=== PATIENT | male | born 1975 | race Caucasian/White ===

== ENCOUNTER 2024-12-26 14:51 | Inpatient (IN) | payer OTHER, SELFPAY ==
[2024-12-26 15:16] VITALS: BMI 30.7
[2024-12-26 15:17] VITALS: BP 169/84; PULSE 84; RESP 14; TEMP 36.8; O2SAT 97
--- NOTE | 2024-12-26 17:22 | PC.ADMIT ---
Marshall was admitted to on 12/26/24 at 15:00 from [facility] for the treatment of bipolar depression. He signed a CV upon arrival. Marshall reports that he was seen by his outpatient provider, who had done several medication adjustments recently, and that she recommended an inpatient admission for medication adjustment. He states that he worked in the [place] at [employer] for over 20 years, but had to stop working about a year ago after a work-related injury. He states that prior to going to the ED, he had been laying in bed for 3 days and was not caring for himself. He reports poor sleep and appetite. He is alert and oriented x4. He reports his mood is depressed and anxious. He denies suicidal and homicidal thoughts and intent. He denies auditory and visual hallucinations. His thought process appears linear. He reports a recent weight gain of about 10 lbs, but states his weight fluctuates a lot. He reports a hx of ETOH abuse, but reports being sober for over 10 years. He states occasional use of cannabis to help with sleep. Utox positive for THC, BAL negative. Marshall stated he has been seeing a neurologist for neuropathy, but was recently referred out to a higher level of care to rule out possible MS diagnosis. He also reports a history of abdominal pain, asthma, chronic low back pain, GERD, hiatal hernia, liver hemangioma, and lumbar radiculopathy. He was placed on 15 minute checks for safety.
[2024-12-26] MEDS: Flu Vacc TS2025-26(6mo up)/PF 0.5 ML SYRINGE IM (18:45)
[2024-12-26 20:00] VITALS: BP 165/87; PULSE 80; RESP 18; TEMP 36.6; O2SAT 98
[2024-12-26 21:57] VITALS: BP 160/82; PULSE 85; RESP 18
[2024-12-27 07:42] VITALS: BP 107/68; PULSE 58; RESP 16; TEMP 37; O2SAT 96
--- NOTE | 2024-12-27 08:15 | HO.PM.IMCN ---
History of Present Illness Data of Consult Service Date: 12/27/24 Primary Care Provider: DANAY Taylor HPI Reason for consult: Medical consult 49-year-old male with a past medical history of asthma, bipolar disorder, alcohol use disorder in sustained remission, generalized anxiety disorder, and major depressive disorder, chronic lower back pain, factor 5 Leiden, GERD, hiatal hernia, liver hemangioma, lumbar radiculopathy, neuropathy and shortness of breath presented to the ED after being referred by his psychiatrist due to increased anxiety and depression. He is possibly being worked up for MS. Toxicology screen was negative, no alcohol. CMP without evidence of renal or liver dysfunction, no electrolyte imbalances. CBC without leukocytosis or anemia. On exam his most persistent problem is his chronic lower back pain. Patient reports she is being followed by [facility] and sees them for several years. He denies any medical concerns. Reports he has a history of elevated blood pressures but that has been stable. Review of Systems Review of Systems: Denies any shortness of breath, chest pain, dysuria, abdominal pain or discomfort, nausea, vomiting or diarrhea. Positive chronic lower back pain PMFSH Social History Household Members: Spouse, Family and Children Household Members Other:: 22 y.o. nonverbal step-son Housing: House Do you presently have visiting nurse or other home services: No Patient Tobacco Use Status: Current everyday Tobacco user Tobacco use type: Smokeless Tobacco Smoked in Last 30 Days: No e-Cigarette/Vaping Use: Never Used Patient Interested in Nicotine Replacement: Yes Patient Given Instructions on How to Stop Smoking: Yes Date Education Initiated: 12/26/24 Second Hand Smoke Exposure: No Currently Displaying Signs/Symptoms of Drug Intoxication Withdrawal: No Have you been hit, kicked, punched, or otherwise hurt by someone within the past year? If so, by whom?: No Do you feel safe in your current relationship?: Yes Is there a partner from a previous relationship who is making you feel unsafe now?: No Are you made to feel afraid or neglected: No Advance Directives: No Advance Directives Information Provided: Yes Do you have thoughts of harming others: None Do you have a plan to hurt others: No Plan Recently lost weight without trying: No How much weight loss: Not applicable Eating poorly because of decreased appetite: Yes Nutrition screen score: 1 Nutrition Risks: No Nutritional Risk Poor oral hygiene: No service: No Sexual orientation: Straight/Heterosexual Meds Allergies Allergy/AdvReac Type Severity Reaction Status Date / Time No Known Allergies Allergy Verified 12/26/24 14:56 Active Medications: Current Medications Acetaminophen (Acetaminophen 325 Mg Tablet) 650 mg PO Q6H PRN PRN Reason: Headache/Pain, Scale 1-10 Al Hydroxide/Mg Hydroxide (Magnesium Hydrox/Alum Hydrox 30 Ml Oral.Susp) 30 ml PO Q6H PRN PRN Reason: Heartburn/Nausea Buspirone HCl (Buspirone Hcl 5 Mg Tablet) 15 mg PO BID [facility] Last Admin: 12/26/24 21:18 Dose: 15 mg Clonazepam (Clonazepam 0.5 Mg Tablet) 0.25 mg PO DAILY PRN PRN Reason: Anxiety Ergocalciferol (Ergocalciferol (Vitamin D2) 1,250 Mcg Capsule) 1,250 mcg PO Q28D [facility] Famotidine (Famotidine 20 Mg Tablet) 40 mg PO BEDTIME [facility] Last Admin: 12/26/24 21:18 Dose: 40 mg Hydroxyzine HCl (Hydroxyzine Hcl 25 Mg Tablet) 25 mg PO Q6H PRN PRN Reason: mild anxiety Lamotrigine (Lamotrigine 25 Mg Tablet) 50 mg PO DAILY [facility] Lamotrigine (Lamotrigine 100 Mg Tablet) 200 mg PO DAILY [facility] [place] Carbonate ([place] Carbonate 300 Mg Capsule) 600 mg PO BID [facility] Last Admin: 12/26/24 21:18 Dose: 600 mg Magnesium Hydroxide (Milk Of Magnesia 30 Ml Oral.Susp) 30 ml PO DAILY PRN PRN Reason: Constipation Nicotine Polacrilex (Nicotine Polacrilex 2 Mg Gum) 4 mg BUCCAL Q2H PRN PRN Reason: Nicotine Cravings Olanzapine (Olanzapine 5 Mg Tablet) 5 mg PO Q4H PRN PRN Reason: agitation Quetiapine Fumarate (Quetiapine Fumarate 50 Mg Tablet) 50 mg PO BEDTIME PRN PRN Reason: Insomnia Quetiapine Fumarate (Quetiapine Fumarate 50 Mg Tablet) 50 mg PO BEDTIME [facility] Last Admin: 12/26/24 21:18 Dose: 50 mg Trazodone HCl (Trazodone Hcl 50 Mg Tablet) 50 mg PO BEDTIME MRX1 PRN PRN Reason: Insomnia Home Medications ?Medication ?Instructions ?Recorded ?Confirmed ?Last Taken ?Type Vitamin D3 50,000 units PO Q4W 12/26/24 12/26/24 Unknown History buspirone 15 mg tablet 15 mg PO BID 12/26/24 12/26/24 Unknown History clonazepam 0.5 mg tablet (Klonopin) 0.25 mg PO DAILY PRN Anxiety 12/26/24 12/26/24 Unknown History famotidine 40 mg tablet 40 mg PO BEDTIME 12/26/24 12/26/24 Unknown History lamotrigine 200 mg tablet 200 mg PO DAILY 12/26/24 12/26/24 Unknown History (Lamictal) lamotrigine 25 mg tablet (Lamictal) 50 mg PO DAILY 12/26/24 12/26/24 Unknown History lithium carbonate 600 mg capsule 600 mg PO BID 12/26/24 12/26/24 Unknown History quetiapine 50 mg tablet (Seroquel) 50 mg PO BEDTIME 12/26/24 12/26/24 Unknown History quetiapine 50 mg tablet (Seroquel) 50 mg PO BEDTIME PRN Insomnia 12/26/24 12/26/24 Unknown History Physical Exam Vital Signs and Narrative: Vital Signs: Last Vital Signs Temp 98.6 F 12/27/24 07:42 Pulse 58 12/27/24 07:42 Resp 16 12/27/24 07:42 BP 107/68 12/27/24 07:42 Pulse Ox 96 12/27/24 07:42 O2 Del Method Room Air 12/27/24 07:42 BMI result Body Mass Index 30.7 CONST: Alert and oriented, in NAD. Well nourished HEENT: Normocephalic, atraumatic, MMM, Eyes clear, Neck supple RESP: Lungs clear, RRR even and regular HEART:,RRR, S1, S2. No edema GI:Abdomen Soft NT, ND. + BS times four :Deferred SKIN: Warm dry and intact, no visible lesions or rashes NEURO:CN II-XII Intact bilaterally, Sensation intact. Speech clear PSYCH: Normal affect Results Labs 12/27/24 07:53 Assessment and Plan (1) Chronic low back pain: Status: Acute Plan 49-year-old male with a past medical history as listed below, admitted to inpatient psych for treatment of increased anxiety and depression. Bipolar disorder/ETOH use in remission/RAMOS/MDD Treatment per psychiatric team Chronic lower back pain/lumbar radiculopathy/neuropathy Follow up by [facility] has received several injections and interventions for his chronic back pain GERD/hiatal hernia/liver hemangioma, Followed by GI outpatient Chronic shortness of breath related to long COVID Patient has had several workups, followed by Pulmonary. No indication at this time for inhaler Thank you for allowing me to participate in the care of this patient. Will follow with you, please notify medical provider with any changes in condition or concerns.
[2024-12-27 08:34] LABS: Hemoglobin A1C 126.2392 umol/L; Total Hemoglobin (HGBA1C) 4112.9436 umol/L
--- NOTE | 2024-12-27 08:34 | HO.PSYADMNOT ---
HPI Date of Service: 12/27/24 Chief Complaint: F31.9, F10.21, F41.1, F33.9, Sources of Information: patient interviewed, chart reviewed and crisis/core team assessment reviewed HPI Subjective Notes: Peck Warning and Conditional Voluntary Narrative: Patient is a 49 year old male with hx of Bipolar d/o, PTSD who self presented to ER d/t increased anxiety and depression secondary to increase life stressors. Per crisis report, patient was referred to ER by his psychiatrist due to his increased anxiety and depression. He reports several life stressors and unable to function in society. Patient reports increased anxiety recently due to finding out that he may have MS ; he reports feeling depressed since having lost interest in the things that he enjoys doing . Patient reports feeling numb and out of reality . He reports feeling overwhelmed, withdrawn and hopeless. Patient reports being medication compliant however feels that medications are not working. Denies SI/HI/AH however reports visual hallucinations of seeing shadows . Patient also feels like someone is constantly watching him. Patient has outpatient psychiatrist and therapist that he reports he has been seeing for several years. History of alcohol use disorder but has been sober for 5 years. Utox positive for marijuana. History of multiple inpatient psychiatric hospitalizations. Denies history of SA/SIB. During admission assessment, pt presents alert and oriented x3. calm and cooperative. Patient reports feeling anxious and depressed; patient stated, I was in bed 2-3 days before coming here. My anxiety keeps me from doing things that I like to do. I have anxiety all the time. I have had multiple MRIs over the last month and they think that I have MS. I'm supposed to go back for them to do another MRI . Patient reports working with his therapist and outpatient prescriber regarding his increased anxiety. He reports having panic attacks when going into stores or being around people . Patient reports he feels someone is watching him even when he is in the shower , but states that it does not prevent him from showering. He reports being medication compliant. Patient states he has been taking lithium for over 20 years. Patient reports he recently was prescribed Klonopin but he feels it was not beneficial and made him feel irritable . Discussed starting Ativan; risks/benefits reviewed; patient agreed to trial. Patient denies SI/HI/VH/AH. Past Psychiatric History: History of multiple inpatient psychiatric hospitalizations. Denies history of SA/SIB. Prescriber: Siena Ambrosio ([place], [place]) Therapist: Jesse Blackman ([place], [place]) Medical Evaluation Reviewed: Yes PMFSH Family History: Paternal grandfather: Bipolar disorder Cousin: Bipolar disorder Social History: Lives with . Has 7 kids. High school diploma. Unemployed. Substance History: History of alcohol use disorder. Uses marijuana once a week. U tox positive for marijuana. Trauma History: Yes Diagnostics Vital Signs (24Hr): Vital Signs - 24 hr 12/26/24 15:17 12/26/24 20:00 12/26/24 21:57 Temperature 98.2 F 97.9 F Pulse Rate 84 80 85 Respiratory Rate 14 18 18 Blood Pressure 169/84 H 165/87 H 160/82 H Pulse Oximetry 97 98 Oxygen Delivery Method Room Air Room Air 12/27/24 07:42 Temperature 98.6 F Pulse Rate 58 Respiratory Rate 16 Blood Pressure 107/68 Pulse Oximetry 96 Oxygen Delivery Method Room Air BMI result Body Mass Index 30.7 Labs 12/27/24 07:53 Meds/Allergies Meds Home Medications ?Medication ?Instructions ?Recorded ?Confirmed ?Type Vitamin D3 50,000 units PO Q4W 12/26/24 12/26/24 History buspirone 15 mg tablet 15 mg PO BID 12/26/24 12/26/24 History clonazepam 0.5 mg tablet (Klonopin) 0.25 mg PO DAILY PRN Anxiety 12/26/24 12/26/24 History famotidine 40 mg tablet 40 mg PO BEDTIME 12/26/24 12/26/24 History lamotrigine 200 mg tablet 200 mg PO DAILY 12/26/24 12/26/24 History (Lamictal) lamotrigine 25 mg tablet (Lamictal) 50 mg PO DAILY 12/26/24 12/26/24 History lithium carbonate 600 mg capsule 600 mg PO BID 12/26/24 12/26/24 History quetiapine 50 mg tablet (Seroquel) 50 mg PO BEDTIME 12/26/24 12/26/24 History quetiapine 50 mg tablet (Seroquel) 50 mg PO BEDTIME PRN Insomnia 12/26/24 12/26/24 History Allergies Allergies Allergy/AdvReac Type Severity Reaction Status Date / Time No Known Allergies Allergy Verified 12/26/24 14:56 Mental Status Exam Mental Status Exam Patient Appearance: Appropriate Patient Orientation: Person, Place, Time and Situation Level of Consciousness: Awake and Alert Patient Behavior: Appropriate, Cooperative and Good Eye Contact Mood Description: Depressed and Anxious Affect Description: Depressed Ability to Follow Directions: Good Speech Pattern: Clear Memory Description: Intact Hallucinations: None Delusions: Not Present Thought Process: Intact Thought Content: positive for Intact Assessment & Plan Assessment & Plan (1) Bipolar disorder: Status: Acute Code(s): F31.9 - Bipolar disorder, unspecified (2) PTSD (post-traumatic stress disorder): Status: Acute Code(s): F43.10 - Post-traumatic stress disorder, unspecified (3) Alcohol use disorder in remission: Status: Acute Code(s): F10.91 - Alcohol use, unspecified, in remission Plan Patient is a 49 year old male with hx of Bipolar d/o, PTSD who self presented to ER d/t increased anxiety and depression secondary to increase life stressors. Plan: CV 15 minute safety checks Continue home medications DC Klonopin Start: Ativan 0.5mg BID Obtain collateral Encourage groups Discharge planning Patient educated on: diagnosis and medication risk/benefits Reason for continued inpatient stay Substantial Risk for: med/psych decompensation Statement Statement: I have reviewed the history and physical and performed a pertinent examination on my patient. No changes have occurred unless specified. If the History and Physical was not performed prior to admission, the Hospitalist's service will be consulted for completing the admission physical. Time Spent With Patient Time: Total time managing care of this patient today _60___ minutes.
[2024-12-27 08:49] LABS: Alanine Aminotransferase 32 U/L (0-40); Albumin Level 4.5 g/dL (3.5-5.0); Alkaline Phosphatase 57 U/L (39-117); Anion Gap 12 (12-20); Aspartate Amino Transferase 27 U/L (5-37); Blood Urea Nitrogen 14 mg/dL (9-16); Calcium 9.5 mg/dL (8.4-10.2); Carbon Dioxide 23 mmol/L (22-29); Chloride 108 mmol/L (96-108); Cholesterol 185 mg/dL (<200); Creatinine Clr Calc Pharmacy 78.2; Estimated Glomerular Filt Rate 50; HDL Cholesterol 38 mg/dL (>40); Potassium 4.4 mmol/L (3.3-5.1); Sodium 139 mmol/L (135-145); Total Protein 7.2 g/dL (6.5-8.0); Triglycerides 211 mg/dL (<150)
[2024-12-27 20:15] VITALS: BP 164/99; PULSE 78; RESP 18; TEMP 36.8; O2SAT 98
[2024-12-27 21:35] VITALS: BP 136/90; PULSE 80
[2024-12-28 08:00] VITALS: BP 120/80; PULSE 58; RESP 18; TEMP 36.6; O2SAT 97
--- NOTE | 2024-12-28 10:47 | P.PNPSI_ITS ---
Subjective Subjective Date of Service: 12/28/24 Reason For Visit: F31.9, F10.21, F41.1, F33.9, Subjective Notes: Conditional Voluntary Interim History: Patient was seen and discussed in rounds today. Records and plans were reviewed. He has been settling in. Eating and sleeping adequately up to 7 hours. He is pleasant and interactive. He is social and visible. No AVH. Medication compliant. No side effects. No SI. Review of Systems Review of Systems Yes all other systems are reviewed and are negative Mental Status Exam Mental Status Exam Patient Appearance: Appropriate Patient Orientation: Person, Place, Time and Situation Level of Consciousness: Awake and Alert Patient Behavior: Appropriate, Cooperative and Good Eye Contact Mood Description: Depressed and Anxious Affect Description: Depressed Ability to Follow Directions: Good Speech Pattern: Clear Memory Description: Intact Hallucinations: None Delusions: Not Present Thought Process: Intact Thought Content: positive for Intact Diagnostics Vital Signs (24Hr): Vital Signs - 24 hr 12/27/24 20:15 12/27/24 21:35 12/28/24 08:00 Temperature 98.3 F 97.8 F Pulse Rate 78 80 58 Respiratory Rate 18 18 Blood Pressure 164/99 H 136/90 H 120/80 Pulse Oximetry 98 97 Oxygen Delivery Method Room Air Room Air BMI result Body Mass Index 30.7 Labs 12/27/24 07:53 Labs: Laboratory Results - last 48 hr 12/27/24 07:53 Sodium 139 Potassium 4.4 Chloride 108 Carbon Dioxide 23 Anion Gap 12 BUN 14 Creatinine 1.48 H Estim Creat Clear Calc 78.2 Estimated GFR 50 Random Glucose 124 H Estimat Average Glucose 97 Hemoglobin A1c % 5.0 Calcium 9.5 Total Bilirubin 0.8 AST 27 ALT 32 Alkaline Phosphatase 57 Total Protein 7.2 Albumin 4.5 Triglycerides 211 H Cholesterol 185 LDL Cholesterol, Calc 105 H HDL Cholesterol 38 L Medications Medications Current Medications Acetaminophen (Acetaminophen 325 Mg Tablet) 650 mg PO Q6H PRN PRN Reason: Headache/Pain, Scale 1-10 Al Hydroxide/Mg Hydroxide (Magnesium Hydrox/Alum Hydrox 30 Ml Oral.Susp) 30 ml PO Q6H PRN PRN Reason: Heartburn/Nausea Buspirone HCl (Buspirone Hcl 5 Mg Tablet) 15 mg PO BID [facility] Last Admin: 12/28/24 08:42 Dose: 15 mg Ergocalciferol (Ergocalciferol (Vitamin D2) 1,250 Mcg Capsule) 1,250 mcg PO Q28D [facility] Last Admin: 12/27/24 09:32 Dose: 1,250 mcg Famotidine (Famotidine 20 Mg Tablet) 40 mg PO BEDTIME [facility] Last Admin: 12/27/24 21:26 Dose: 40 mg Hydroxyzine HCl (Hydroxyzine Hcl 25 Mg Tablet) 25 mg PO Q6H PRN PRN Reason: mild anxiety Lamotrigine (Lamotrigine 25 Mg Tablet) 50 mg PO DAILY [facility] Last Admin: 12/28/24 08:42 Dose: 50 mg Lamotrigine (Lamotrigine 100 Mg Tablet) 200 mg PO DAILY [facility] Last Admin: 12/28/24 08:42 Dose: 200 mg [place] Carbonate ([place] Carbonate 300 Mg Capsule) 600 mg PO BID [facility] Last Admin: 12/28/24 08:43 Dose: 600 mg Lorazepam (Lorazepam 0.5 Mg Tablet) 0.5 mg PO BID [facility] Last Admin: 12/28/24 08:42 Dose: 0.5 mg Magnesium Hydroxide (Milk Of Magnesia 30 Ml Oral.Susp) 30 ml PO DAILY PRN PRN Reason: Constipation Nicotine Polacrilex (Nicotine Polacrilex 2 Mg Gum) 4 mg BUCCAL Q2H PRN PRN Reason: Nicotine Cravings Last Admin: 12/27/24 16:22 Dose: 4 mg Olanzapine (Olanzapine 5 Mg Tablet) 5 mg PO Q4H PRN PRN Reason: agitation Quetiapine Fumarate (Quetiapine Fumarate 50 Mg Tablet) 50 mg PO BEDTIME [facility] Last Admin: 12/27/24 21:26 Dose: 50 mg Quetiapine Fumarate (Quetiapine Fumarate 25 Mg Tablet) 25 mg PO TID PRN PRN Reason: Anxiety, mild Last Admin: 12/28/24 08:58 Dose: 25 mg Trazodone HCl (Trazodone Hcl 50 Mg Tablet) 50 mg PO BEDTIME MRX1 PRN PRN Reason: Insomnia Allergies Allergies Allergy/AdvReac Type Severity Reaction Status Date / Time No Known Allergies Allergy Verified 12/26/24 14:56 Assessment & Plan Assessment & Plan (1) Bipolar disorder: Status: Acute Code(s): F31.9 - Bipolar disorder, unspecified (2) PTSD (post-traumatic stress disorder): Status: Acute Code(s): F43.10 - Post-traumatic stress disorder, unspecified (3) Alcohol use disorder in remission: Status: Acute Code(s): F10.91 - Alcohol use, unspecified, in remission Plan Patient is a 49 year old male with hx of Bipolar d/o, PTSD who self presented to ER d/t increased anxiety and depression secondary to increase life stressors. Plan: CV 15 minute safety checks Continue home medications DC Klonopin Start: Ativan 0.5mg BID Obtain collateral Encourage groups Discharge planning 12/28: Continue current regimen and plans Reason for continued inpatient stay Substantial Risk for: med/psych decompensation Time Spent With Patient Time: Total time managing care of this patient today ____ minutes.
[2024-12-28 19:55] VITALS: BP 170/108; PULSE 71; RESP 16; TEMP 37.1; O2SAT 98
[2024-12-28 21:10] VITALS: BP 142/92; PULSE 82
[2024-12-29 08:00] VITALS: BP 129/84; PULSE 57; RESP 18; TEMP 36.7; O2SAT 99
--- NOTE | 2024-12-29 10:28 | P.PNPSI_ITS ---
Subjective Subjective Date of Service: 12/29/24 Reason For Visit: F31.9, F10.21, F41.1, F33.9, Subjective Notes: Conditional Voluntary Interim History: Patient was seen and discussed in rounds today. Records and plans were reviewed. He continues to have some depression and a lot of anxiety. He is visible and cooperative. Denies any side effects. His partner has been bringing in some red bull which has led to elevation of his blood pressure. He was made aware of that and he will stop using it. We also discussed possibility of putting him on lisinopril which he has been on before but he would like to wait and see whether his blood pressure we stabilizes. He also feels that the anxiety is contributing to this which maybe very likely. No SI. Eating and sleeping adequately. No changes were made today so far. Review of Systems Review of Systems Yes all other systems are reviewed and are negative Mental Status Exam Mental Status Exam Narrative: In today's visit he is alert, oriented and pleasant. Normal speech. Moderate eye contact. Affect is appropriate. Moderate anxiety present. No active SI. No signs of psychosis. Cognitively intact. Judgment intact Diagnostics Vital Signs (24Hr): Vital Signs - 24 hr 12/28/24 19:55 12/28/24 21:10 12/29/24 08:00 Temperature 98.7 F 98.1 F Pulse Rate 71 82 57 Respiratory Rate 16 18 Blood Pressure 170/108 H 142/92 H 129/84 Pulse Oximetry 98 99 Oxygen Delivery Method Room Air Room Air BMI result Body Mass Index 30.7 Labs 12/27/24 07:53 Medications Medications Current Medications Acetaminophen (Acetaminophen 325 Mg Tablet) 650 mg PO Q6H PRN PRN Reason: Headache/Pain, Scale 1-10 Al Hydroxide/Mg Hydroxide (Magnesium Hydrox/Alum Hydrox 30 Ml Oral.Susp) 30 ml PO Q6H PRN PRN Reason: Heartburn/Nausea Buspirone HCl (Buspirone Hcl 5 Mg Tablet) 15 mg PO BID [facility] Last Admin: 12/29/24 08:41 Dose: 15 mg Ergocalciferol (Ergocalciferol (Vitamin D2) 1,250 Mcg Capsule) 1,250 mcg PO Q28D [facility] Last Admin: 12/27/24 09:32 Dose: 1,250 mcg Famotidine (Famotidine 20 Mg Tablet) 40 mg PO BEDTIME [facility] Last Admin: 12/28/24 21:18 Dose: 40 mg Hydroxyzine HCl (Hydroxyzine Hcl 25 Mg Tablet) 25 mg PO Q6H PRN PRN Reason: mild anxiety Last Admin: 12/28/24 17:23 Dose: 25 mg Lamotrigine (Lamotrigine 25 Mg Tablet) 50 mg PO DAILY [facility] Last Admin: 12/29/24 08:31 Dose: 50 mg Lamotrigine (Lamotrigine 100 Mg Tablet) 200 mg PO DAILY [facility] Last Admin: 12/29/24 08:31 Dose: 200 mg [place] Carbonate ([place] Carbonate 300 Mg Capsule) 600 mg PO BID [facility] Last Admin: 12/29/24 08:31 Dose: 600 mg Lorazepam (Lorazepam 0.5 Mg Tablet) 0.5 mg PO BID [facility] Last Admin: 12/29/24 08:31 Dose: 0.5 mg Magnesium Hydroxide (Milk Of Magnesia 30 Ml Oral.Susp) 30 ml PO DAILY PRN PRN Reason: Constipation Nicotine Polacrilex (Nicotine Polacrilex 2 Mg Gum) 4 mg BUCCAL Q2H PRN PRN Reason: Nicotine Cravings Last Admin: 12/27/24 16:22 Dose: 4 mg Olanzapine (Olanzapine 5 Mg Tablet) 5 mg PO Q4H PRN PRN Reason: agitation Last Admin: 12/29/24 08:39 Dose: 5 mg Quetiapine Fumarate (Quetiapine Fumarate 50 Mg Tablet) 50 mg PO BEDTIME [facility] Last Admin: 12/28/24 21:18 Dose: 50 mg Quetiapine Fumarate (Quetiapine Fumarate 25 Mg Tablet) 25 mg PO TID PRN PRN Reason: Anxiety, mild Last Admin: 12/28/24 08:58 Dose: 25 mg Trazodone HCl (Trazodone Hcl 50 Mg Tablet) 50 mg PO BEDTIME MRX1 PRN PRN Reason: Insomnia Allergies Allergies Allergy/AdvReac Type Severity Reaction Status Date / Time No Known Allergies Allergy Verified 12/26/24 14:56 Assessment & Plan Assessment & Plan (1) Bipolar disorder: Status: Acute Code(s): F31.9 - Bipolar disorder, unspecified (2) PTSD (post-traumatic stress disorder): Status: Acute Code(s): F43.10 - Post-traumatic stress disorder, unspecified (3) Alcohol use disorder in remission: Status: Acute Code(s): F10.91 - Alcohol use, unspecified, in remission Plan Patient is a 49 year old male with hx of Bipolar d/o, PTSD who self presented to ER d/t increased anxiety and depression secondary to increase life stressors. Plan: CV 15 minute safety checks Continue home medications DC Klonopin Start: Ativan 0.5mg BID Obtain collateral Encourage groups Discharge planning 12/28: Continue current regimen and plans 12/29: Continue current regimen and plans Patient educated on: medication risk/benefits Reason for continued inpatient stay Substantial Risk for: med/psych decompensation Time Spent With Patient Time: Total time managing care of this patient today ____ minutes.
[2024-12-29 19:25] VITALS: BP 152/84; PULSE 74; RESP 18; TEMP 36.9; O2SAT 98
[2024-12-30 07:58] VITALS: BP 133/91; PULSE 60; RESP 18; TEMP 36.7; O2SAT 99
--- NOTE | 2024-12-30 09:04 | HO.PSYCHPN ---
Subjective Subjective Date of Service: 12/29/24 Reason For Visit: F31.9, F10.21, F41.1, F33.9, Subjective Notes: Conditional Voluntary Interim History: Patient was seen and discussed in rounds today. Records and plans were reviewed. He is doing well. Yesterday he did not have any red bull and his blood pressure today is 133/91. Less anxious. Affect is brother. Continues to be little guarded. He is visible and social. Eating and sleeping adequately. No SI. No changes were made today Review of Systems Review of Systems Yes all other systems are reviewed and are negative Mental Status Exam Mental Status Exam Narrative: In today's visit he is alert, oriented and pleasant. Normal speech. Moderate eye contact. Affect is appropriate. Moderate anxiety present. No active SI. No signs of psychosis. Cognitively intact. Judgment intact Diagnostics Vital Signs (24Hr): Vital Signs - 24 hr 12/29/24 19:25 12/30/24 07:58 Temperature 98.4 F 98.1 F Pulse Rate 74 60 Respiratory Rate 18 18 Blood Pressure 152/84 H 133/91 H Pulse Oximetry 98 99 Oxygen Delivery Method Room Air Room Air BMI result Body Mass Index 30.7 Labs 12/27/24 07:53 Medications Medications Current Medications Acetaminophen (Acetaminophen 325 Mg Tablet) 650 mg PO Q6H PRN PRN Reason: Headache/Pain, Scale 1-10 Last Admin: 12/29/24 21:07 Dose: 650 mg Al Hydroxide/Mg Hydroxide (Magnesium Hydrox/Alum Hydrox 30 Ml Oral.Susp) 30 ml PO Q6H PRN PRN Reason: Heartburn/Nausea Buspirone HCl (Buspirone Hcl 5 Mg Tablet) 15 mg PO BID [facility] Last Admin: 12/30/24 08:28 Dose: 15 mg Ergocalciferol (Ergocalciferol (Vitamin D2) 1,250 Mcg Capsule) 1,250 mcg PO Q28D [facility] Last Admin: 12/27/24 09:32 Dose: 1,250 mcg Famotidine (Famotidine 20 Mg Tablet) 40 mg PO BEDTIME [facility] Last Admin: 12/29/24 21:08 Dose: 40 mg Hydroxyzine HCl (Hydroxyzine Hcl 25 Mg Tablet) 25 mg PO Q6H PRN PRN Reason: mild anxiety Last Admin: 12/29/24 15:19 Dose: 25 mg Lamotrigine (Lamotrigine 25 Mg Tablet) 50 mg PO DAILY [facility] Last Admin: 12/30/24 08:27 Dose: 50 mg Lamotrigine (Lamotrigine 100 Mg Tablet) 200 mg PO DAILY [facility] Last Admin: 12/30/24 08:28 Dose: 200 mg [place] Carbonate ([place] Carbonate 300 Mg Capsule) 600 mg PO BID [facility] Last Admin: 12/30/24 08:28 Dose: 600 mg Lorazepam (Lorazepam 0.5 Mg Tablet) 0.5 mg PO BID [facility] Last Admin: 12/30/24 08:28 Dose: 0.5 mg Magnesium Hydroxide (Milk Of Magnesia 30 Ml Oral.Susp) 30 ml PO DAILY PRN PRN Reason: Constipation Nicotine Polacrilex (Nicotine Polacrilex 2 Mg Gum) 4 mg [place] Q2H PRN PRN Reason: Nicotine Cravings Last Admin: 12/27/24 16:22 Dose: 4 mg Olanzapine (Olanzapine 5 Mg Tablet) 5 mg PO Q4H PRN PRN Reason: agitation Last Admin: 12/29/24 08:39 Dose: 5 mg Quetiapine Fumarate (Quetiapine Fumarate 50 Mg Tablet) 50 mg PO BEDTIME [facility] Last Admin: 12/29/24 21:08 Dose: 50 mg Quetiapine Fumarate (Quetiapine Fumarate 25 Mg Tablet) 25 mg PO TID PRN PRN Reason: Anxiety, mild Last Admin: 12/28/24 08:58 Dose: 25 mg Trazodone HCl (Trazodone Hcl 50 Mg Tablet) 50 mg PO BEDTIME MRX1 PRN PRN Reason: Insomnia Allergies Allergies Allergy/AdvReac Type Severity Reaction Status Date / Time No Known Allergies Allergy Verified 12/26/24 14:56 Assessment & Plan Assessment & Plan (1) Bipolar disorder: Status: Acute Code(s): F31.9 - Bipolar disorder, unspecified (2) PTSD (post-traumatic stress disorder): Status: Acute Code(s): F43.10 - Post-traumatic stress disorder, unspecified (3) Alcohol use disorder in remission: Status: Acute Code(s): F10.91 - Alcohol use, unspecified, in remission Plan Patient is a 49 year old male with hx of Bipolar d/o, PTSD who self presented to ER d/t increased anxiety and depression secondary to increase life stressors. Plan: CV 15 minute safety checks Continue home medications DC Klonopin Start: Ativan 0.5mg BID Obtain collateral Encourage groups Discharge planning 12/28: Continue current regimen and plans 12/29: Continue current regimen and plans 12/30: Continue current regimen and plans. Reason for continued inpatient stay Substantial Risk for: med/psych decompensation Time Spent With Patient Time: Total time managing care of this patient today ____ minutes.
[2024-12-30 20:00] VITALS: BP 164/87; PULSE 74; RESP 16; TEMP 36.6; O2SAT 98
[2024-12-31 07:10] VITALS: BP 121/69; PULSE 60; RESP 18; TEMP 37.2; O2SAT 96
--- NOTE | 2024-12-31 10:58 | HO.PM.IMPN ---
Subjective Subjective Date of Service: 12/31/24 Interval History: Patient seen in follow up for blood pressure, his blood pressure was within normal limits this morning 121/69. He is intermittently elevated blood pressures, reports that he is anxious at times. Requesting to take his Ativan as needed. He otherwise feels well, denies any shortness of breath, dizziness lightheadedness or any other concerning symptoms. Review of Systems Denies any shortness of breath, chest pain, dizziness, lightheadedness, headaches, dysuria, abdominal pain or discomfort, nausea, vomiting or diarrhea. Physical Exam Exam: Exam: CONST: Alert and oriented, in NAD. Well nourished HEENT: Normocephalic, atraumatic, MMM, Eyes clear, Neck supple RESP: Lungs clear, RRR even and regular HEART:,RRR, S1, S2. No edema GI:Abdomen Soft NT, ND. + BS times four :Deferred SKIN: Warm dry and intact, no visible lesions or rashes NEURO:CN II-XII Intact bilaterally, Sensation intact. Speech clear PSYCH: Normal affect Vital Signs: Vital Signs: Last Vital Signs Temp 98.9 F 12/31/24 07:10 Pulse 60 12/31/24 07:10 Resp 18 12/31/24 07:10 BP 121/69 12/31/24 07:10 Pulse Ox 96 12/31/24 07:10 O2 Del Method Room Air 12/31/24 07:10 BMI result Body Mass Index 30.7 Objective Data Active Medications Acetaminophen (Acetaminophen 325 Mg Tablet) 650 mg PO Q6H PRN PRN Reason: Headache/Pain, Scale 1-10 Last Admin: 12/30/24 20:34 Dose: 650 mg Documented By: SHIRA Al Hydroxide/Mg Hydroxide (Magnesium Hydrox/Alum Hydrox 30 Ml Oral.Susp) 30 ml PO Q6H PRN PRN Reason: Heartburn/Nausea Buspirone HCl (Buspirone Hcl 5 Mg Tablet) 15 mg PO BID [facility] Last Admin: 12/31/24 08:08 Dose: 15 mg Documented By: SHIRA Ergocalciferol (Ergocalciferol (Vitamin D2) 1,250 Mcg Capsule) 1,250 mcg PO Q28D [facility] Last Admin: 12/27/24 09:32 Dose: 1,250 mcg Documented By: SUNITA Famotidine (Famotidine 20 Mg Tablet) 40 mg PO BEDTIME [facility] Last Admin: 12/30/24 20:28 Dose: 40 mg Documented By: DOSTALArden Hydroxyzine HCl (Hydroxyzine Hcl 25 Mg Tablet) 25 mg PO Q6H PRN PRN Reason: mild anxiety Last Admin: 12/30/24 20:34 Dose: 25 mg Documented By: DOSTALD Lamotrigine (Lamotrigine 25 Mg Tablet) 50 mg PO DAILY [facility] Last Admin: 12/31/24 08:08 Dose: 50 mg Documented By: [email or web address] Lamotrigine (Lamotrigine 100 Mg Tablet) 200 mg PO DAILY [facility] Last Admin: 12/31/24 08:08 Dose: 200 mg Documented By: DOSTALD [place] Carbonate ([place] Carbonate 300 Mg Capsule) 600 mg PO BID [facility] Last Admin: 12/31/24 08:08 Dose: 600 mg Documented By: DOSTALD Lorazepam (Lorazepam 0.5 Mg Tablet) 0.5 mg PO BID [facility] Last Admin: 12/31/24 08:08 Dose: 0.5 mg Documented By: DOSTALArden Magnesium Hydroxide (Milk Of Magnesia 30 Ml Oral.Susp) 30 ml PO DAILY PRN PRN Reason: Constipation Nicotine Polacrilex (Nicotine Polacrilex 2 Mg Gum) 4 mg [place] Q2H PRN PRN Reason: Nicotine Cravings Last Admin: 12/30/24 10:33 Dose: 4 mg Documented By: DOSTALArden Olanzapine (Olanzapine 5 Mg Tablet) 5 mg PO Q4H PRN PRN Reason: agitation Last Admin: 12/30/24 15:08 Dose: 5 mg Documented By: DOSTALArden Quetiapine Fumarate (Quetiapine Fumarate 50 Mg Tablet) 50 mg PO BEDTIME [facility] Last Admin: 12/30/24 20:28 Dose: 50 mg Documented By: DOSTALArden Quetiapine Fumarate (Quetiapine Fumarate 25 Mg Tablet) 25 mg PO TID PRN PRN Reason: Anxiety, mild Last Admin: 12/28/24 08:58 Dose: 25 mg Documented By: SUNITA Trazodone HCl (Trazodone Hcl 50 Mg Tablet) 50 mg PO BEDTIME MRX1 PRN PRN Reason: Insomnia Labs 12/27/24 07:53 Assessment and Plan (1) Elevated blood pressure reading: Status: Acute Plan 49-year-old male with a past medical history as listed below, admitted to inpatient psych for treatment of increased anxiety and depression. 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 No indication at this time for inhaler History of hypertension, elevated blood pressures Intermittently high, some readings normal Possibly related to increased anxiety which patient admits to. He is currently taking scheduled Ativan b.i.d., feels he does not need the night dose, would prefer to take this twice daily as he needs it. Consider starting low-dose hydrochlorothiazide if blood pressure is consistently greater than 130s over 80s. Thank you for allowing me to participate in the care of this patient. Will follow with you, please notify medical provider with any changes in condition or concerns. Quality Stroke Does the patient have a stroke diagnosis?: No VTE Prior VTE?: No VTE Risk Level:: Medical - low VTE Device Contraindication: Treatment Not Indicated VTE Drug Contraindication: Treatment Not Indicated
--- NOTE | 2024-12-31 14:51 | P.PNPSI_ITS ---
Subjective Subjective Date of Service: 12/31/24 Reason For Visit: F31.9, F10.21, F41.1, F33.9, Subjective Notes: Conditional Voluntary Interim History: Active on unit. social with peers. attending groups. Patient continues to report feeling anxious but states, hydroxyzine and Ativan have been helpful . Hydroxyzine increased to 50mg PO Q8HR PRN. denies SI/HI/VH/AH. Per nursing, slept 8 hours last night. Plan to discharge this week if continues to improve. Continue tx plan. Medication Compliance: Yes Side effects from medications: No Attending Groups: Yes Mental Status Exam Mental Status Exam Narrative: Pt is alert and oriented; behavior is cooperative and calm; dressed in casual attire; mood is described as anxious ; eye contact appropriate; Speech is normal rate, volume and not pressured; thought process is organized; Thought content is on tx; denies SI/HI/VH/AH. Diagnostics Vital Signs (24Hr): Vital Signs - 24 hr 12/30/24 20:00 12/31/24 07:10 Temperature 97.8 F 98.9 F Pulse Rate 74 60 Respiratory Rate 16 18 Blood Pressure 164/87 H 121/69 Pulse Oximetry 98 96 Oxygen Delivery Method Room Air Room Air BMI result Body Mass Index 30.7 Labs 12/27/24 07:53 Medications Medications Current Medications Acetaminophen (Acetaminophen 325 Mg Tablet) 650 mg PO Q6H PRN PRN Reason: Headache/Pain, Scale 1-10 Last Admin: 12/30/24 20:34 Dose: 650 mg Al Hydroxide/Mg Hydroxide (Magnesium Hydrox/Alum Hydrox 30 Ml Oral.Susp) 30 ml PO Q6H PRN PRN Reason: Heartburn/Nausea Buspirone HCl (Buspirone Hcl 5 Mg Tablet) 15 mg PO BID [facility] Last Admin: 12/31/24 08:08 Dose: 15 mg Ergocalciferol (Ergocalciferol (Vitamin D2) 1,250 Mcg Capsule) 1,250 mcg PO Q28D [facility] Last Admin: 12/27/24 09:32 Dose: 1,250 mcg Famotidine (Famotidine 20 Mg Tablet) 40 mg PO BEDTIME [facility] Last Admin: 12/30/24 20:28 Dose: 40 mg Hydroxyzine HCl (Hydroxyzine Hcl 25 Mg Tablet) 25 mg PO Q6H PRN PRN Reason: mild anxiety Last Admin: 12/31/24 14:02 Dose: 25 mg Lamotrigine (Lamotrigine 25 Mg Tablet) 50 mg PO DAILY [facility] Last Admin: 12/31/24 08:08 Dose: 50 mg Lamotrigine (Lamotrigine 100 Mg Tablet) 200 mg PO DAILY [facility] Last Admin: 12/31/24 08:08 Dose: 200 mg [place] Carbonate ([place] Carbonate 300 Mg Capsule) 600 mg PO BID [facility] Last Admin: 12/31/24 08:08 Dose: 600 mg Lorazepam (Lorazepam 0.5 Mg Tablet) 0.5 mg PO BID [facility] Last Admin: 12/31/24 08:08 Dose: 0.5 mg Magnesium Hydroxide (Milk Of Magnesia 30 Ml Oral.Susp) 30 ml PO DAILY PRN PRN Reason: Constipation Nicotine Polacrilex (Nicotine Polacrilex 2 Mg Gum) 4 mg [place] Q2H PRN PRN Reason: Nicotine Cravings Last Admin: 12/30/24 10:33 Dose: 4 mg Olanzapine (Olanzapine 5 Mg Tablet) 5 mg PO Q4H PRN PRN Reason: agitation Last Admin: 12/30/24 15:08 Dose: 5 mg Quetiapine Fumarate (Quetiapine Fumarate 50 Mg Tablet) 50 mg PO BEDTIME [facility] Last Admin: 12/30/24 20:28 Dose: 50 mg Quetiapine Fumarate (Quetiapine Fumarate 25 Mg Tablet) 25 mg PO TID PRN PRN Reason: Anxiety, mild Last Admin: 12/28/24 08:58 Dose: 25 mg Trazodone HCl (Trazodone Hcl 50 Mg Tablet) 50 mg PO BEDTIME MRX1 PRN PRN Reason: Insomnia Allergies Allergies Allergy/AdvReac Type Severity Reaction Status Date / Time No Known Allergies Allergy Verified 12/26/24 14:56 Assessment & Plan Assessment & Plan (1) Bipolar disorder: Status: Acute Code(s): F31.9 - Bipolar disorder, unspecified (2) PTSD (post-traumatic stress disorder): Status: Acute Code(s): F43.10 - Post-traumatic stress disorder, unspecified (3) Alcohol use disorder in remission: Status: Acute Code(s): F10.91 - Alcohol use, unspecified, in remission Plan Patient is a 49 year old male with hx of Bipolar d/o, PTSD who self presented to ER d/t increased anxiety and depression secondary to increase life stressors. Plan: CV 15 minute safety checks Continue home medications DC Klonopin Start: Ativan 0.5mg BID Obtain collateral Encourage groups Discharge planning 12/28: Continue current regimen and plans 12/29: Continue current regimen and plans 12/30: Continue current regimen and plans. 12/31: Active on unit. social with peers. attending groups. Patient continues to report feeling anxious but states, hydroxyzine and Ativan have been helpful . Hydroxyzine increased to 50mg PO Q8HR PRN. denies SI/HI/VH/AH. Per nursing, slept 8 hours last night. Plan to discharge this week if continues to improve. Continue tx plan. Patient educated on: diagnosis, medication risk/benefits and therapeutic strategies Reason for continued inpatient stay Substantial Risk for: med/psych decompensation Time Spent With Patient Time: Total time managing care of this patient today _20___ minutes.
[2024-12-31 19:18] VITALS: BP 175/112; PULSE 86; RESP 18; TEMP 37; O2SAT 96
[2024-12-31 20:56] VITALS: BP 169/105
[2024-12-31 22:16] VITALS: BP 124/78
[2025-01-01 07:51] VITALS: BP 152/105; PULSE 65; RESP 20; TEMP 36.4; O2SAT 99
--- NOTE | 2025-01-01 08:37 | P.PNPSI_ITS ---
Subjective Subjective Date of Service: 01/01/25 Reason For Visit: F31.9, F10.21, F41.1, F33.9, Subjective Notes: Conditional Voluntary Interim History: Active on unit. social with peers. attending groups. observed laughing and joking with staff and peers. denies SI/HI/VH/AH. Plan to discharge home Monday; pt aware. Continue tx plan. Medication Compliance: Yes Side effects from medications: No Attending Groups: Yes Mental Status Exam Mental Status Exam Narrative: Pt is alert and oriented; behavior is cooperative and calm; dressed in casual attire; mood is described as better ; eye contact appropriate; Speech is normal rate, volume and not pressured; thought process is organized; Thought content is on tx; denies SI/HI/VH/AH. Diagnostics Vital Signs (24Hr): Vital Signs - 24 hr 12/31/24 19:18 12/31/24 20:56 12/31/24 22:16 Temperature 98.6 F Pulse Rate 86 Respiratory Rate 18 Blood Pressure 175/112 H 169/105 H 124/78 Pulse Oximetry 96 Oxygen Delivery Method Room Air 01/01/25 07:51 Temperature 97.5 F Pulse Rate 65 Respiratory Rate 20 Blood Pressure 152/105 H Pulse Oximetry 99 Oxygen Delivery Method Room Air BMI result Body Mass Index 30.7 Labs 12/27/24 07:53 Medications Medications Current Medications Acetaminophen (Acetaminophen 325 Mg Tablet) 650 mg PO Q6H PRN PRN Reason: Headache/Pain, Scale 1-10 Last Admin: 12/31/24 18:18 Dose: 650 mg Al Hydroxide/Mg Hydroxide (Magnesium Hydrox/Alum Hydrox 30 Ml Oral.Susp) 30 ml PO Q6H PRN PRN Reason: Heartburn/Nausea Buspirone HCl (Buspirone Hcl 5 Mg Tablet) 15 mg PO BID [facility] Last Admin: 01/01/25 08:25 Dose: 15 mg Clonidine HCl (Clonidine Hcl 0.1 Mg Tablet) 0.1 mg PO BID PRN PRN Reason: High BP Last Admin: 01/01/25 08:34 Dose: 0.1 mg Ergocalciferol (Ergocalciferol (Vitamin D2) 1,250 Mcg Capsule) 1,250 mcg PO Q28D [facility] Last Admin: 12/27/24 09:32 Dose: 1,250 mcg Famotidine (Famotidine 20 Mg Tablet) 40 mg PO BEDTIME [facility] Last Admin: 12/31/24 20:58 Dose: 40 mg Hydroxyzine HCl (Hydroxyzine Hcl 50 Mg Tablet) 50 mg PO Q8H PRN PRN Reason: mild anxiety Lamotrigine (Lamotrigine 25 Mg Tablet) 50 mg PO DAILY [facility] Last Admin: 01/01/25 08:25 Dose: 50 mg Lamotrigine (Lamotrigine 100 Mg Tablet) 200 mg PO DAILY [facility] Last Admin: 01/01/25 08:25 Dose: 200 mg [place] Carbonate ([place] Carbonate 300 Mg Capsule) 600 mg PO BID [facility] Last Admin: 01/01/25 08:25 Dose: 600 mg Lorazepam (Lorazepam 0.5 Mg Tablet) 0.5 mg PO BID [facility] Last Admin: 01/01/25 08:25 Dose: 0.5 mg Magnesium Hydroxide (Milk Of Magnesia 30 Ml Oral.Susp) 30 ml PO DAILY PRN PRN Reason: Constipation Nicotine Polacrilex (Nicotine Polacrilex 2 Mg Gum) 4 mg [place] Q2H PRN PRN Reason: Nicotine Cravings Last Admin: 12/31/24 18:19 Dose: 4 mg Olanzapine (Olanzapine 5 Mg Tablet) 5 mg PO Q4H PRN PRN Reason: agitation Last Admin: 12/31/24 20:56 Dose: 5 mg Quetiapine Fumarate (Quetiapine Fumarate 50 Mg Tablet) 50 mg PO BEDTIME [facility] Last Admin: 12/31/24 20:58 Dose: 50 mg Quetiapine Fumarate (Quetiapine Fumarate 25 Mg Tablet) 25 mg PO TID PRN PRN Reason: Anxiety, mild Last Admin: 12/28/24 08:58 Dose: 25 mg Trazodone HCl (Trazodone Hcl 50 Mg Tablet) 50 mg PO BEDTIME MRX1 PRN PRN Reason: Insomnia Allergies Allergies Allergy/AdvReac Type Severity Reaction Status Date / Time No Known Allergies Allergy Verified 12/26/24 14:56 Assessment & Plan Assessment & Plan (1) Bipolar disorder: Status: Acute Code(s): F31.9 - Bipolar disorder, unspecified (2) PTSD (post-traumatic stress disorder): Status: Acute Code(s): F43.10 - Post-traumatic stress disorder, unspecified (3) Alcohol use disorder in remission: Status: Acute Code(s): F10.91 - Alcohol use, unspecified, in remission (4) Elevated blood pressure reading: Status: Acute Code(s): R03.0 - Elevated blood-pressure reading, without diagnosis of hypertension Plan Patient is a 49 year old male with hx of Bipolar d/o, PTSD who self presented to ER d/t increased anxiety and depression secondary to increase life stressors. Plan: CV 15 minute safety checks Continue home medications DC Klonopin Start: Ativan 0.5mg BID Obtain collateral Encourage groups Discharge planning 12/28: Continue current regimen and plans 12/29: Continue current regimen and plans 12/30: Continue current regimen and plans. 12/31: Active on unit. social with peers. attending groups. Patient continues to report feeling anxious but states, hydroxyzine and Ativan have been helpful . Hydroxyzine increased to 50mg PO Q8HR PRN. denies SI/HI/VH/AH. Per nursing, slept 8 hours last night. Plan to discharge this week if continues to improve. Continue tx plan. 01/01: Active on unit. social with peers. attending groups. observed laughing and joking with staff and peers. denies SI/HI/VH/AH. Plan to discharge home Monday; pt aware. Continue tx plan. Patient educated on: diagnosis and medication risk/benefits Reason for continued inpatient stay Substantial Risk for: med/psych decompensation Time Spent With Patient Time: Total time managing care of this patient today _20___ minutes.
[2025-01-01 10:00] VITALS: BP 137/87; PULSE 74; RESP 18
[2025-01-01 22:15] VITALS: BP 133/86; PULSE 82; RESP 18; TEMP 37; O2SAT 100
[2025-01-02 07:00] VITALS: BMI 31.5
[2025-01-02 07:47] VITALS: BP 119/81; PULSE 59; RESP 18; TEMP 36.9; O2SAT 98
[2025-01-02 08:02] VITALS: BP 119/81; PULSE 59; RESP 18; TEMP 36.9; O2SAT 98
--- NOTE | 2025-01-02 09:52 | P.PNPSI_ITS ---
Subjective Subjective Date of Service: 01/02/25 Reason For Visit: F31.9, F10.21, F41.1, F33.9, Subjective Notes: Conditional Voluntary Interim History: Active on unit. social with peers. attending groups. observed laughing and joking with staff and peers. Patient reports feeling better than when I came in ; denies SI/HI/VH/AH. Patient reports he plans on following up with his outpatient providers. Medication Compliance: Yes Side effects from medications: No Attending Groups: Yes Mental Status Exam Mental Status Exam Narrative: Pt is alert and oriented; behavior is cooperative and calm; dressed in casual attire; mood is described as good ; eye contact appropriate; Speech is normal rate, volume and not pressured; thought process is organized; Thought content is on discharge; denies SI/HI/VH/AH. Diagnostics Vital Signs (24Hr): Vital Signs - 24 hr 01/01/25 10:00 01/01/25 22:15 01/02/25 07:47 Temperature 98.6 F 98.5 F Pulse Rate 74 82 59 Respiratory Rate 18 18 18 Blood Pressure 137/87 133/86 119/81 Pulse Oximetry 100 98 Oxygen Delivery Method Room Air Room Air 01/02/25 08:02 Temperature 98.5 F Pulse Rate 59 Respiratory Rate 18 Blood Pressure 119/81 Pulse Oximetry 98 Oxygen Delivery Method Room Air BMI result Body Mass Index 31.5 Labs 12/27/24 07:53 Medications Medications Current Medications Acetaminophen (Acetaminophen 325 Mg Tablet) 650 mg PO Q6H PRN PRN Reason: Headache/Pain, Scale 1-10 Last Admin: 12/31/24 18:18 Dose: 650 mg Al Hydroxide/Mg Hydroxide (Magnesium Hydrox/Alum Hydrox 30 Ml Oral.Susp) 30 ml PO Q6H PRN PRN Reason: Heartburn/Nausea Buspirone HCl (Buspirone Hcl 5 Mg Tablet) 15 mg PO BID [facility] Last Admin: 01/02/25 08:22 Dose: 15 mg Clonidine HCl (Clonidine Hcl 0.1 Mg Tablet) 0.1 mg PO BID PRN PRN Reason: High BP Last Admin: 01/01/25 08:34 Dose: 0.1 mg Ergocalciferol (Ergocalciferol (Vitamin D2) 1,250 Mcg Capsule) 1,250 mcg PO Q28D [facility] Last Admin: 12/27/24 09:32 Dose: 1,250 mcg Famotidine (Famotidine 20 Mg Tablet) 40 mg PO BEDTIME [facility] Last Admin: 01/01/25 22:24 Dose: 40 mg Hydroxyzine HCl (Hydroxyzine Hcl 50 Mg Tablet) 50 mg PO Q8H PRN PRN Reason: mild anxiety Last Admin: 01/02/25 08:26 Dose: 50 mg Lamotrigine (Lamotrigine 25 Mg Tablet) 50 mg PO DAILY [facility] Last Admin: 01/02/25 08:23 Dose: 50 mg Lamotrigine (Lamotrigine 100 Mg Tablet) 200 mg PO DAILY [facility] Last Admin: 01/02/25 08:23 Dose: 200 mg [place] Carbonate ([place] Carbonate 300 Mg Capsule) 600 mg PO BID [facility] Last Admin: 01/02/25 08:23 Dose: 600 mg Lorazepam (Lorazepam 0.5 Mg Tablet) 0.5 mg PO BID [facility] Last Admin: 01/02/25 08:23 Dose: 0.5 mg Magnesium Hydroxide (Milk Of Magnesia 30 Ml Oral.Susp) 30 ml PO DAILY PRN PRN Reason: Constipation Nicotine Polacrilex (Nicotine Polacrilex 2 Mg Gum) 4 mg BUCCAL Q2H PRN PRN Reason: Nicotine Cravings Last Admin: 01/02/25 09:00 Dose: 4 mg Quetiapine Fumarate (Quetiapine Fumarate 50 Mg Tablet) 50 mg PO BEDTIME [facility] Last Admin: 01/01/25 22:25 Dose: 50 mg Trazodone HCl (Trazodone Hcl 50 Mg Tablet) 50 mg PO BEDTIME MRX1 PRN PRN Reason: Insomnia Allergies Allergies Allergy/AdvReac Type Severity Reaction Status Date / Time No Known Allergies Allergy Verified 12/26/24 14:56 Assessment & Plan Assessment & Plan (1) Bipolar disorder: Status: Acute Code(s): F31.9 - Bipolar disorder, unspecified (2) PTSD (post-traumatic stress disorder): Status: Acute Code(s): F43.10 - Post-traumatic stress disorder, unspecified (3) Alcohol use disorder in remission: Status: Acute Code(s): F10.91 - Alcohol use, unspecified, in remission (4) Elevated blood pressure reading: Status: Acute Code(s): R03.0 - Elevated blood-pressure reading, without diagnosis of hypertension Plan Patient is a 49 year old male with hx of Bipolar d/o, PTSD who self presented to ER d/t increased anxiety and depression secondary to increase life stressors. Plan: CV 15 minute safety checks Continue home medications DC Klonopin Start: Ativan 0.5mg BID Obtain collateral Encourage groups Discharge planning 12/28: Continue current regimen and plans 12/29: Continue current regimen and plans 12/30: Continue current regimen and plans. 12/31: Active on unit. social with peers. attending groups. Patient continues to report feeling anxious but states, hydroxyzine and Ativan have been helpful . Hydroxyzine increased to 50mg PO Q8HR PRN. denies SI/HI/VH/AH. Per nursing, slept 8 hours last night. Plan to discharge this week if continues to improve. Continue tx plan. 01/01: Active on unit. social with peers. attending groups. observed laughing and joking with staff and peers. denies SI/HI/VH/AH. Plan to discharge home Monday; pt aware. Continue tx plan. 01/02: Active on unit. social with peers. attending groups. observed laughing and joking with staff and peers. Patient reports feeling better than when I came in ; denies SI/HI/VH/AH. Patient reports he plans on following up with his outpatient providers. Patient educated on: diagnosis and medication risk/benefits Reason for continued inpatient stay Substantial Risk for: stable for discharge Time Spent With Patient Time: Total time managing care of this patient today _20___ minutes.
[2025-01-02 21:00] VITALS: BP 162/98; PULSE 79; RESP 18; TEMP 36.8; O2SAT 98
[2025-01-03 08:05] VITALS: BP 127/83; PULSE 79; RESP 14; TEMP 36.6; O2SAT 96
--- NOTE | 2025-01-03 08:51 | PM.PSYDC ---
DS: Providers Provider Date of Service: 01/03/25 Date of admission: 12/26/24 14:51 Date of discharge: 01/03/25 Primary care physician: DANAY Taylor Admitting clinician: Sadia Rosado Attending physician on admission: Olaf Barrow Consults: 12/26/24 14:57 Consult to Hospitalist Routine Comment: [place] [facility] [place] Reason For Exam: new admit, H&P Attending physician on discharge: Olaf Barrow Discharging clinician: Sadia Rosado DS: Diagnosis Discharge Diagnosis (1) Bipolar disorder: Status: Acute (2) PTSD (post-traumatic stress disorder): Status: Acute (3) Alcohol use disorder in remission: Status: Acute (4) Elevated blood pressure reading: Status: Acute DS: Medications Discharge Medications Home Medications: Home Medications ?Medication ?Instructions ?Recorded ?Confirmed Vitamin D3 50,000 units PO Q4W 12/26/24 12/26/24 buspirone 15 mg tablet 15 mg PO BID 12/26/24 12/26/24 famotidine 40 mg tablet 40 mg PO BEDTIME 12/26/24 12/26/24 lamotrigine 200 mg tablet 200 mg PO DAILY 12/26/24 12/26/24 (Lamictal) lamotrigine 25 mg tablet (Lamictal) 50 mg PO DAILY 12/26/24 12/26/24 lithium carbonate 600 mg capsule 600 mg PO BID 12/26/24 12/26/24 quetiapine 50 mg tablet (Seroquel) 50 mg PO BEDTIME 12/26/24 12/26/24 Previous Rx's ?Medication ?Instructions ?Recorded clonidine HCl 0.1 mg tablet 0.1 mg PO BID PRN High BP 7 days 01/02/25 #14 tabs hydroxyzine HCl 50 mg tablet 50 mg PO Q8H PRN mild anxiety 7 01/02/25 days #21 tabs lorazepam 0.5 mg tablet 0.5 mg PO BID 7 days #14 tabs 01/02/25 Mental Status Exam Mental Status Exam Narrative: Pt is alert and oriented; behavior is cooperative and calm; dressed in casual attire; mood is described as good ; eye contact appropriate; Speech is normal rate, volume and not pressured; thought process is organized; Thought content is on discharge; denies SI/HI/VH/AH. DS: Summary Hospital Course Hospital Course: Patient is a 49 year old male with hx of Bipolar d/o, PTSD who self presented to ER d/t increased anxiety and depression secondary to increase life stressors. Per crisis report, patient was referred to ER by his psychiatrist due to his increased anxiety and depression. He reports several life stressors and unable to function in society. Patient reports increased anxiety recently due to finding out that he may have MS ; he reports feeling depressed since having lost interest in the things that he enjoys doing . Patient reports feeling numb and out of reality . He reports feeling overwhelmed, withdrawn and hopeless. Patient reports being medication compliant however feels that medications are not working. Denies SI/HI/AH however reports visual hallucinations of seeing shadows . Patient also feels like someone is constantly watching him. Patient has outpatient psychiatrist and therapist that he reports he has been seeing for several years. History of alcohol use disorder but has been sober for 5 years. Utox positive for marijuana. History of multiple inpatient psychiatric hospitalizations. Denies history of SA/SIB. During admission assessment, pt presents alert and oriented x3. calm and cooperative. Patient reports feeling anxious and depressed; patient stated, I was in bed 2-3 days before coming here. My anxiety keeps me from doing things that I like to do. I have anxiety all the time. I have had multiple MRIs over the last month and they think that I have MS. I'm supposed to go back for them to do another MRI . Patient reports working with his therapist and outpatient prescriber regarding his increased anxiety. He reports having panic attacks when going into stores or being around people . Patient reports he feels someone is watching him even when he is in the shower , but states that it does not prevent him from showering. He reports being medication compliant. Patient states he has been taking lithium for over 20 years. Patient reports he recently was prescribed Klonopin but he feels it was not beneficial and made him feel irritable . Discussed starting Ativan; risks/benefits reviewed; patient agreed to trial. Patient denies SI/HI/VH/AH. Plan: CV 15 minute safety checks Continue home medications DC Klonopin Start: Ativan 0.5mg BID Obtain collateral Encourage groups Discharge planning Active on unit. social with peers. attending groups. Patient continues to report feeling anxious but states, hydroxyzine and Ativan have been helpful . Hydroxyzine increased to 50mg PO Q8HR PRN. denies SI/HI/VH/AH. Per nursing, slept 8 hours last night. Plan to discharge this week if continues to improve. Continue tx plan. Active on unit. social with peers. attending groups. observed laughing and joking with staff and peers. denies SI/HI/VH/AH. Plan to discharge home Monday; pt aware. Continue tx plan. Active on unit. social with peers. attending groups. observed laughing and joking with staff and peers. Patient reports feeling better than when I came in ; denies SI/HI/VH/AH. Patient reports he plans on following up with his outpatient providers. Status at Discharge Cognitive/behavioral status at discharge: Patient has insight and demonstrates good judgment in terms of wanting to pursue treatment. Patient has a safety plan that includes presenting to the closest ER or calling 911 if feeling unsafe. Functional status at discharge: independent ambulation Overall status at discharge: patient is back to baseline Time Spent with Patient Time attestation: Total time managing care of this patient today _20___ minutes. Time spent: Less than 30 minutes Discharge Plan Discharge Anticipated Discharge Date/Time: 01/03/25 11:00 Patient Disposition: Home, Self-Care Discharge Diagnosis: Bipolar d/o, PTSD, Alcohol use d/o Referrals: Jesse Blackman (Therapy) [Other] - 01/06/25 11:00 am Referral Note: *Please follow up with your therapist for your weekly appointment. Siena Ambrosio (Psychiatry) [Other] - 01/06/25 1:30 pm Referral Note: TELEHEALTH APPOINTMENT Erica Pool FNP [Primary Care Provider, Family Practice] - 01/09/25 1:30 pm Referral Note: 01-02-25 Your follow up appt will be with German Tee on 01-09-25 @1:30pm Discharge Medications: New clonidine HCl 0.1 mg Tablet 0.1 mg PO BID PRN (Reason: High BP) 7 Days Qty: 14 0RF lorazepam 0.5 mg Tablet 0.5 mg PO BID 7 Days Qty: 14 0RF hydroxyzine HCl 50 mg Tablet 50 mg PO Q8H PRN (Reason: mild anxiety) 7 Days Qty: 21 0RF Continued quetiapine [Seroquel] 50 mg Tablet 50 mg PO BEDTIME lamotrigine [Lamictal] 200 mg Tablet 200 mg PO DAILY Rx Instructions: take with Lamictal 50mg for a total dose of 250mg lamotrigine [Lamictal] 25 mg Tablet 50 mg PO DAILY Rx Instructions: take with Lamictal 200mg for a total dose of 250mg buspirone 15 mg Tablet 15 mg PO BID lithium carbonate 600 mg Capsule 600 mg PO BID famotidine 40 mg Tablet 40 mg PO BEDTIME Vitamin D3 50,000 units PO Q4W Discontinued clonazepam [Klonopin] 0.5 mg Tablet 0.25 mg PO DAILY PRN (Reason: Anxiety) quetiapine [Seroquel] 50 mg Tablet 50 mg PO BEDTIME PRN (Reason: Insomnia) Discharge Orders: Discharge Order (Routine); Ordered 01/03/25 Ordered By: Sadia Rosado Diet: Regular diet Activity on Discharge: As tolerated Stand Alone Forms: Patient Portal Discharge page, Community Support Print Language: Frisian Care Plan Goals: Maintain mood and safe behaviors Take medications as prescribed Continue to pursue sobriety Practice coping skills Continue with outpatient providers and reach out to them as needed Health Concerns: Mood stability and behaviors Sobriety Plan of Treatment: Follow up with your PCP, psychiatric provider and other outpatient providers regarding above concerns Take medications as prescribed Assessment: Patient has insight and demonstrates good judgment in terms of wanting to pursue treatment. Patient has a safety plan that includes presenting to the closest ER or calling 911 if feeling unsafe.
== END 2025-01-03 11:01 | disposition home or self-care (01) | DRG 885 ==
PROVIDERS: Admitting Provider Psychiatry & Neurology Psychiatry; PCP Nurse Practitioner Family; Responsible Provider Registered Nurse; Visit Provider Psychiatry & Neurology Psychiatry
DX: F31.9 Bipolar disorder, unspecified (principal); M54.50 Low back pain, unspecified; F17.210 Nicotine dependence, cigarettes, uncomplicated; F10.91 Alcohol use, unspecified, in remission; Z71.6 Tobacco abuse counseling; F41.1 Generalized anxiety disorder; R06.02 Shortness of breath; U09.9 Post COVID-19 condition, unspecified; G89.29 Other chronic pain; Z23 Encounter for immunization; F43.10 Post-traumatic stress disorder, unspecified; R03.0 Elevated blood-pressure reading, without diagnosis of hypertension; Z79.899 Other long term (current) drug therapy
CPT/HCPCS: 36415; 80053; 80061; 83036; 90656

== ENCOUNTER → 2024-12-26 14:51 | Outpatient (BNV) | payer OTHER, SELFPAY | PROVIDERS: Admitting Provider Psychiatry & Neurology Psychiatry; PCP Nurse Practitioner Family; Responsible Provider Registered Nurse; Visit Provider Psychiatry & Neurology Psychiatry | DX: F31.4 Bipolar disorder, current episode depressed, severe, without psychotic features (principal); F43.11 Post-traumatic stress disorder, acute; F10.91 Alcohol use, unspecified, in remission | CPT/HCPCS: 90792; 99231; 99232 ==

== ENCOUNTER → 2024-12-26 14:51 | Outpatient (BNV) | payer OTHER, SELFPAY | PROVIDERS: Admitting Provider Psychiatry & Neurology Psychiatry; PCP Nurse Practitioner Family; Visit Provider Nurse Practitioner Family | DX: R03.0 Elevated blood-pressure reading, without diagnosis of hypertension (principal) | CPT/HCPCS: 99221; 99231 ==